=== PATIENT | female | born 1935 | race Caucasian/White ===

== ENCOUNTER 2018-06-27 15:03 | Inpatient (IN) | payer MEDICARE, MEDICAID ==
[~2018-06-27] VITALS: Ht 157.5 cm; Wt 50.3 kg
--- NOTE | 2018-06-27 15:25 | NUR ---
PT SENT BY CARDIO DR HERNANDEZ, FOR NEW A-FIB. TO ER BED 3, HOOKED TO MONITOR, CHANGED TO GOWN, PROVIDED W WARM BLANKET, DR OLIVER AT BEDSIDE FOR EVAL.
[2018-06-27] MEDS ORDERED: IV NS 0.9% 500 ML BAG IV ONE (15:30)
[2018-06-27] MEDS ORDERED: CARB1TAB21 PO (15:31)
[2018-06-27] MEDS ORDERED: FLUT1DIS3 PO (15:31)
[2018-06-27] MEDS ORDERED: VIT1CAPS44 PO (15:32)
[2018-06-27] MEDS ORDERED: ALBU18HF2 INH (15:32)
[2018-06-27] MEDS ORDERED: APIX2.5T PO (15:32)
[2018-06-27] MEDS ORDERED: ATOR10TA PO (15:32)
[2018-06-27] MEDS ORDERED: ASCO500T9 PO (15:32)
[2018-06-27] MEDS ORDERED: ALPR0.5T8 PO (15:32)
[2018-06-27] MEDS ORDERED: OMEP40CA37 PO (15:32)
[2018-06-27] MEDS ORDERED: DILT120T2 PO (15:32)
[2018-06-27] MEDS ORDERED: FURO20TA4 PO (15:40)
[2018-06-27] MEDS ORDERED: PYRI100T2 PO (15:40)
[2018-06-27] MEDS ORDERED: CYAN10009 PO (15:40)
[2018-06-27 15:41] LABS: BASOPHILS # (AUTO) 0.1 /CMM (0.0-0.2); BASOPHILS % (AUTO) 1.4 % (0.0-2.0); EOSINOPHILS % (AUTO) 5.5 % (0.0-6.0); HEMATOCRIT 38 % (33-45); HEMOGLOBIN 12.8 g/dL (11.5-14.8); LYMPHOCYTES # (AUTO) 1.5 /CMM (0.8-4.8); LYMPHOCYTES % (AUTO) 19.6 % (20.0-44.0); MEAN CORPUSCULAR HGB CONC 34 g/dl (31.0-36.0); MEAN CORPUSCULAR VOLUME 90 fL (82-100); MONOCYTES # (AUTO) 0.9 /CMM (0.1-1.30); MONOCYTES % (AUTO) 11.9 % (2.0-12.0); NEUTROPHILS # (AUTO) 4.7 /CMM (1.8-8.9); NEUTROPHILS % (AUTO) 61.6 % (43.0-81.0); PLATELET COUNT (AUTO) 374 /CMM (150-450); RED BLOOD CELL COUNT(AUTO) 4.23 MIL/uL (4.0-5.2); WHITE BLOOD COUNT (AUTO) 7.7 K/uL (4.3-11.0)
[2018-06-27 15:51] LABS: CALCIUM, SERUM 9.5 mg/dL (8.5-10.1); CARBON DIOXIDE 31 mmol/L (21-32); CHLORIDE 97 mmol/L (98-107); CREATININE 0.7 mg/dL (0.6-1.3); GLUCOSE 103 mg/dL (74-106); POTASSIUM 4.4 mmol/L (3.5-5.1); SODIUM SERUM 134 mmol/L (136-145); UREA NITROGEN, BLOOD 16 mg/dL (7-18)
[2018-06-27 16:04] LABS: ALANINE AMINOTRANSFERASE 15 U/L (12-78); ALKALINE PHOSPHATASE 119 U/L (46-116); ASPARTATE AMINOTRANSFERASE 17 U/L (15-37); BILIRUBIN,DIRECT 0.1 mg/dL (0.0-0.2); BILIRUBIN,TOTAL 0.4 mg/dL (0.2-1.0); TOTAL PROTEIN, SERUM 7.5 g/dL (6.4-8.2)
--- NOTE | 2018-06-27 16:20 | NUR ---
CALLED DR. NUGENT. WAS PAGED, AWAITING HIS CALL.
[2018-06-27] MEDS ORDERED: DILTIAZEM HCL 50 MG IV ONE (16:58)
[2018-06-27] MEDS ORDERED: DILTIAZEM HCL 50 MG IV IV ONE ×2 (17:00→20:00)
--- NOTE | 2018-06-27 17:16 | NUR ---
PT IN BED, COMFORTABLE, NAD NOTED, HOOKED TO FROZEN YOGURT MAKER, WILL CONTINUE T MONITOR.
--- NOTE | 2018-06-27 18:06 | NUR ---
PER DR OLIVER, DR HERNANDEZ WILL SEE THE PATIENT HERE IN ED.
--- NOTE | 2018-06-27 19:03 | NUR ---
DR HERNANDEZ AT BEDSIDE
[2018-06-27] MEDS ORDERED: DILTIAZEM HCL CD 240 MG PO SCH (19:30)
[2018-06-27] MEDS ORDERED: DILTIAZEM HCL 25 MG IV IV ONE (19:30)
--- NOTE | 2018-06-27 19:33 | NUR ---
CALLED [facility]. APPLICATION MANAGER WAS PAGED
--- NOTE | 2018-06-27 19:35 | NUR ---
URINE SAMPLE SENT TO LAB
--- NOTE | 2018-06-27 19:36 | NUR ---
REPORT GIVEN TO KESHIA SALAZAR FOR PRISCILLA
[2018-06-27 19:53] LABS: APPEARANCE,URINE Clear (CLEAR); BILIRUBIN,URINE Negative (NEGATIVE); BLOOD, URINE Negative Ery/uL (NEGATIVE); COLOR,URINE Yellow (YELLOW); KETONES,URINE Negative (NEGATIVE); LEUKOCYTE ESTERASE ,URINE Trace (NEGATIVE); NITRITE, URINE Positive (NEGATIVE); PROTEIN,URINE Negative (NEGATIVE); UGLUCOSE Negative (NEGATIVE); UROBILINOGEN,URINE 0.2 EU/dL (0.2)
--- NOTE | 2018-06-27 20:05 | NUR ---
CALLED [facility]SE [facility] FOR TELE BED
--- NOTE | 2018-06-27 20:20 | NUR ---
PT ASSIGNED 118-1.
[2018-06-27 20:31] LABS: RBC,URINE 0-2 /HPF (0-2)
[2018-06-27 20:32] LABS: BACTERIA,URINE Many /HPF (None Seen); SQUAMOUS EPITHELIAL CELL,UR Few /HPF (None Seen)
--- NOTE | 2018-06-27 20:34 | NUR ---
REPORT GIVEN TO KANU SALAZAR
[2018-06-27 21:00] VITALS: BP 174/93
[2018-06-27] MEDS ORDERED: MAGNESIUM HYDROXIDE 30 ML UDC PO PRN (21:00)
[2018-06-27] MEDS ORDERED: Z GUARD REMEDY 2 OZ OINT TP PRN (21:00)
[2018-06-27] MEDS ORDERED: MAG HYDROX/AL HYDROX/SIMETH 30 ML UDC PO PRN (21:00)
[2018-06-27] MEDS ORDERED: HYDROCODONE/APAP 5/325MG 1 EACH TABLET PO PRN (21:00)
[2018-06-27] MEDS: CARBIDOPA/LEVODOPA 10/100 MG 1 UDTAB PO SCH ×2 (21:00→21:33)
[2018-06-27] MEDS ORDERED: ONDANSETRON HCL/PF 4 MG/2 ML VIAL IVP PRN (21:00)
--- NOTE | 2018-06-27 21:00 | NUR ---
TELE N ADMITTING NOTES RECEIVED PATIENT FROM ER, ARRIVED VIA GURNEY. ADMITTED TO ROOM 110 W/ DX TACHYCARDIA UNDER CARE OF LYNN JOHNSON. PATIENT A/A/O X3, ABLE TO MAKE NEEDS KNOWN & FOLLOW SIMPLE COMMANDS. BREATHING EVEN & UNLABORED, TOLERATING ROOM AIR. ON TELE W/ AFIB, HR 130S. DENIES ANY CHEST PAIN OR DISCOMFORT. LEFT AC IV #20 INTACT & PATENT W/ DRESSING CDI, SALINE LOCKED. NO SIGNS OF INFILTRATION NOTED. ABLE TO AMBULATE W/ ASSIST & W/ CANE. SKIN ASSESSMENT DONE & ORIENTED TO ROOM. SAFETY MEASURES IN PLACE W/ SIDE RAILS UP & BED ALARM ON. INSTRUCTED TO USE CALL LIGHT FOR ASSISTANCE. AWAITING ADMITTING ORDERS. WILL CONTINUE TO MONITOR.
[2018-06-27] MEDS: ATORVASTATIN 10 MG TABLET PO SCH (21:33)
[2018-06-27] MEDS ORDERED: DILTIAZEM HCL CD 120 MG PO SCH (21:38)
[2018-06-27] MEDS: DILTIAZEM HCL CD 120 MG PO SCH (21:51)
[2018-06-27] MEDS ORDERED: LEVOFLOXACIN 500 MG /D5W 100ML 500 MG in PREMIX 1 EA IV ONE (22:00)
[2018-06-27] MEDS ORDERED: LEVOFLOXACIN 500 MG /D5W 100ML 100 ML IV ONE (22:52)
[2018-06-27] MEDS: ACETAMINOPHEN 325 MG TABLET PO PRN (23:16)
[2018-06-28] VITALS: BP 145/72
[2018-06-28] MEDS ORDERED: ALBUTEROL FS 2.5 MG/3 ML VIAL.NEB NEB PRN (01:30)
[2018-06-28] MEDS: ALPRAZOLAM 0.5 MG TABLET PO PRN ×2 (01:37→20:40)
[2018-06-28 04:00] VITALS: BP 134/70
[2018-06-28 06:28] LABS: BASOPHILS # (AUTO) 0.1 /CMM (0.0-0.2); BASOPHILS % (AUTO) 0.8 % (0.0-2.0); EOSINOPHILS % (AUTO) 4.8 % (0.0-6.0); HEMATOCRIT 34 % (33-45); HEMOGLOBIN 11.4 g/dL (11.5-14.8); LYMPHOCYTES # (AUTO) 1.2 /CMM (0.8-4.8); LYMPHOCYTES % (AUTO) 16.9 % (20.0-44.0); MEAN CORPUSCULAR HGB CONC 33 g/dl (31.0-36.0); MEAN CORPUSCULAR VOLUME 90 fL (82-100); MONOCYTES # (AUTO) 0.9 /CMM (0.1-1.30); MONOCYTES % (AUTO) 13.4 % (2.0-12.0); NEUTROPHILS # (AUTO) 4.4 /CMM (1.8-8.9); NEUTROPHILS % (AUTO) 64.1 % (43.0-81.0); PLATELET COUNT (AUTO) 335 /CMM (150-450); RED BLOOD CELL COUNT(AUTO) 3.81 MIL/uL (4.0-5.2); WHITE BLOOD COUNT (AUTO) 6.9 K/uL (4.3-11.0)
[2018-06-28 06:43] LABS: CALCIUM, SERUM 9.4 mg/dL (8.5-10.1); CARBON DIOXIDE 28 mmol/L (21-32); CHLORIDE 101 mmol/L (98-107); CREATININE 0.6 mg/dL (0.6-1.3); GLUCOSE 90 mg/dL (74-106); POTASSIUM 4.3 mmol/L (3.5-5.1); SODIUM SERUM 138 mmol/L (136-145); UREA NITROGEN, BLOOD 13 mg/dL (7-18)
[2018-06-28 06:46] LABS: MAGNESIUM 1.9 mg/dL (1.8-2.4); PHOSPHORUS 3.7 mg/dL (2.5-4.9)
[2018-06-28 06:56] LABS: CHOLESTEROL 120 mg/dL (<200); HDL CHOLESTEROL 81 mg/dL (40-60); LDL 38 mg/dL (0-99); THYROID STIMULATING HORMONE 0.013 uIU/mL (0.358-3.74); TRIGLYCERIDES 26 mg/dL (30-150)
--- NOTE | 2018-06-28 07:32 | NUR ---
DEPUTY MANAGER OPENING NOTES RECEIVED BEDSIDE REPORT.PATIENT SLEEPING ABLE TO AROUSE WITH VOICE AND TOUCH A/O X4 HARD OF HEARING USES HEARING AID. NO SIGNS OR SYMPTOMS OF RESPIRATORY DISTTESS OR ACUTE PAIN NOTED. SATURATING WELL ON ROOM AIR. NO CHEST PAIN NOTED SINUS TACHY 100'S ON MONITOR. AMBULATORY IN ROOM IV SALINE LOCK TO LAC #20 GAUGE. SAFETY PRECAUTIONS IN PLACE BED IN LOW POSITION CALL LIGHT WITHIN REACH LABS DRAWN WILL CONT TO MONITOR
[2018-06-28 08:00] VITALS: BP 123/75
[2018-06-28] MEDS: DILTIAZEM HCL CD 120 MG PO SCH ×2 (08:59→16:51)
[2018-06-28] MEDS: CARBIDOPA/LEVODOPA 10/100 MG 1 UDTAB PO SCH ×4 (08:59→20:23)
[2018-06-28] MEDS: MULTIVITAMIN/LUTEIN/MINERALS 1 TAB PO SCH (08:59)
[2018-06-28] MEDS: ASCORBIC ACID 500 MG TABLET PO SCH (09:00)
[2018-06-28] MEDS ORDERED: FLUTICASONE/SALMETEROL DISKUS IH SCH (09:00)
[2018-06-28] MEDS: PANTOPRAZOLE 40 MG TABLET.DR PO SCH (09:02)
[2018-06-28] MEDS: FLUTICASONE/VILANTEROL 1 EACH BLST.W.DEV IH SCH (10:57)
[2018-06-28] MEDS: APIXABAN 2.5 MG TABLET PO SCH ×2 (10:58→16:54)
--- NOTE | 2018-06-28 11:20 | NUR ---
PT. HAD X1 EPISODE OF EMESIS. VISUALIZED YELLOW IN COLOR. PT REPORTED EATING ORANGES. PT. STATES THAT SHE DOES NOT NORMALLY GET NAUSEOUS OR VOMIT. PER HONING MACHINE OPERATOR TOOL, HR WENT TO 118 AND THEN DOWN TO 90S, CONTROLLED AFIB. PT DENIES ANY CHEST PAIN, ANY RADIATING PAIN AND SHORTNESS OF BREATH. NO ACUTE DISTRESS NOTED. ZOFRAN GIVEN. SPO2 95% ON ROOM AIR, BP 139/75. WILL CONTINUE TO MONITOR.
--- NOTE | 2018-06-28 11:54 | NUR ---
CYBER SECURITY ARCHITECT NOTES SPOKE WITH PATIENT IN REGARDS TO CODE STATUS STATED SHE HAS ADVANCE DIRECTIVE STATING HER DNR/DNI STATUS
[2018-06-28 12:00] VITALS: BP 139/75
--- NOTE | 2018-06-28 12:20 | NUR ---
SKIN CARE INSTRUCTOR NOTES SPOKE WITH DR ROQUE IN REGARDS TO PATIENT HR SUSTAINING IN THE 130'S. ONE TIME PHONE ORDER DILTIAZEM 10 MG/IVP AND DILTIAZEM 120 MG PO X1
[2018-06-28] MEDS ORDERED: DILTIAZEM HCL CD 120 MG PO ONE (12:30)
[2018-06-28] MEDS ORDERED: DILTIAZEM HCL 25 MG IV IV ONE (12:30)
--- NOTE | 2018-06-28 12:43 | NUR ---
CANDY ROLLER NOTES HR 88 ON MONITOR AFTER 10MG DILTIAZEM
[2018-06-28] MEDS: ACETAMINOPHEN 325 MG TABLET PO PRN ×2 (12:53→20:40)
[2018-06-28 16:00] VITALS: BP 101/62
--- NOTE | 2018-06-28 18:38 | NUR ---
DIRECTOR OF LABORATORY OPERATIONS CLOSING NOTES PT. A/OX4 EATING DINNER WITH FAMILY AT BEDSIDE. HR 66 ON TELE, CONTROLLED AFIB. PT. DENIES CHEST PAIN, NAUSEA OR DISCOMFORT AT THIS TIME. NO SOB OR ACUTE DISTRESS NOTED. NO MORE EPISODES OF EMESIS. ALL ORDERED MEDS GIVEN. NONSKID SOCKS ON. BED LOCKED, LOW, SIDE RAILS UPX2, CALL LIGHT WITHIN REACH.
--- NOTE | 2018-06-28 19:40 | NUR ---
RN NOTE RECEIVED PT ON BED BREATHING EVEN AND UNLABORED ON ROOM AIR SATURATION 94%. AOX4 ABLE TO VERBALIZED NEEDS AND COMFORT. TELE MONITOR REVEALS A-FIB.AMBULATE WITH ASSIST AND USING CANE FOR HELP. IV SITE ON LAC FLUSHED WELL INTACT AND PATENT. CONTINUE TO CLOSELY MONITOR PATIENT DUE TO EPISODE OF A-FIB. KEPT PT CLEAN AND DRY , BED LOCKED AND SECURED IN LOWEST POSSIBLE POSITION. CALL LIGHT KEPT WITHIN EASY REACH REMINDED TO USED FOR ASSISTANCE.
[2018-06-28 20:00] VITALS: BP 122/62
[2018-06-28] MEDS ORDERED: LEVOFLOXACIN 250 MG /D5W 50 ML 250 MG in PREMIX 1 EA IV SCH (22:00)
[2018-06-28] MEDS: ATORVASTATIN 10 MG TABLET PO SCH (22:02)
[2018-06-29] VITALS: BP 120/63
[2018-06-29] MEDS: ACETAMINOPHEN 325 MG TABLET PO PRN ×3 (03:31→15:28)
[2018-06-29 04:00] VITALS: BP 118/60
[2018-06-29 06:34] LABS: BASOPHILS # (AUTO) 0.1 /CMM (0.0-0.2); BASOPHILS % (AUTO) 0.8 % (0.0-2.0); EOSINOPHILS % (AUTO) 6.1 % (0.0-6.0); HEMATOCRIT 36 % (33-45); HEMOGLOBIN 11.7 g/dL (11.5-14.8); LYMPHOCYTES # (AUTO) 1.3 /CMM (0.8-4.8); LYMPHOCYTES % (AUTO) 20.4 % (20.0-44.0); MEAN CORPUSCULAR HGB CONC 33 g/dl (31.0-36.0); MEAN CORPUSCULAR VOLUME 89 fL (82-100); MONOCYTES # (AUTO) 1.2 /CMM (0.1-1.30); MONOCYTES % (AUTO) 18.3 % (2.0-12.0); NEUTROPHILS # (AUTO) 3.5 /CMM (1.8-8.9); NEUTROPHILS % (AUTO) 54.4 % (43.0-81.0); PLATELET COUNT (AUTO) 325 /CMM (150-450); RED BLOOD CELL COUNT(AUTO) 4.01 MIL/uL (4.0-5.2); WHITE BLOOD COUNT (AUTO) 6.5 K/uL (4.3-11.0)
--- NOTE | 2018-06-29 06:40 | NUR ---
RN NOTES PATIENT ASLEEP WELL ON BED. NO ACUTE RESPIRATORY DISTRESS. AFEBRILE. CLOSELY MONITOR CARDIAC RHYTHM DUE TO EPISODE OF A-FIB YESTERDAY. PATIENT REMAINED SR THROUGHOUT THE SHIFT AT NIGHT UNTIL 4:02 AM PATIENT TURNS TO A- FLUTTER HR WENT DOWN TO 39 NOT SUSTAINING, ASYMPTOMATIC. PT. ASLEEP DEEPLY ON BED. NO SOB DENIES PAIN. AFTER COMPLAINING OF LEFT THIGH PAIN LAST NIGHT PRN MEDICINE GIVEN, TYLENOL REMAINED EFFECTIVE. . ALL NEEDS ATTENDED. KEPT PT CLEAN AND DRY. WILL ENDORSED CONTINUITY OF CARE TO AM NURSE.
[2018-06-29 06:50] LABS: CALCIUM, SERUM 9.5 mg/dL (8.5-10.1); CARBON DIOXIDE 29 mmol/L (21-32); CHLORIDE 99 mmol/L (98-107); CREATININE 0.7 mg/dL (0.6-1.3); GLUCOSE 99 mg/dL (74-106); MAGNESIUM 2.2 mg/dL (1.8-2.4); PHOSPHORUS 3.9 mg/dL (2.5-4.9); POTASSIUM 4.4 mmol/L (3.5-5.1); SODIUM SERUM 136 mmol/L (136-145); UREA NITROGEN, BLOOD 11 mg/dL (7-18)
[2018-06-29 08:00] VITALS: BP_SYST 134; BP_SYST 84; BP_DIAS 64; BP_DIAS 66
--- NOTE | 2018-06-29 08:00 | NUR ---
RN/TELE AM NOTES RECEIVED PATIENT CALM, ALOC X4, IV IN RIGHT AC 20 MATT FLUSHING WELL. PATIENT SKIN INTACT, LUNG SOUNDS CLEAR, NO EDEMA PRESENT, HEART RATE IS STILL A-FIB WITH CURRENT RATE OF 65BPM. PATIENT IS SATURATING WELL ON ROOM AIR, 95%. BOWL SOUNDS PRESENT IN ALL FOUR QUADRANTS, PULSES PRESENT AND STRONG IN ALL EXTREMITIES. WILL CONTINUE TO MONITOR. ALL TREATMENTS AND MEDICATIONS PROVIDED ORDERED.
[2018-06-29] MEDS: FLUTICASONE/VILANTEROL 1 EACH BLST.W.DEV IH SCH (08:06)
[2018-06-29] MEDS: MULTIVITAMIN/LUTEIN/MINERALS 1 TAB PO SCH (08:07)
[2018-06-29] MEDS: CARBIDOPA/LEVODOPA 10/100 MG 1 UDTAB PO SCH ×2 (08:07→12:45)
[2018-06-29] MEDS: ASCORBIC ACID 500 MG TABLET PO SCH (08:07)
[2018-06-29] MEDS: PANTOPRAZOLE 40 MG TABLET.DR PO SCH (08:08)
[2018-06-29] MEDS: APIXABAN 2.5 MG TABLET PO SCH (08:09)
[2018-06-29] MEDS: DILTIAZEM HCL CD 120 MG PO SCH (08:37)
[2018-06-29] MEDS ORDERED: CYANOCOBALAMIN 500 MCG TABLET PO SCH (09:00)
[2018-06-29 09:53] LABS: EOSINOPHILS % (MANUAL) 7 % (0-4); LYMPHOCYTES % (MANUAL) 25 % (16-48); MONOCYTES % (MANUAL) 17 % (0-11.0); NEUTROPHILS % (MANUAL) 51 (42-76)
[2018-06-29 12:00] VITALS: BP 136/70
[2018-06-29] MEDS ORDERED: DILT120C87 PO (13:21)
[2018-06-29] MEDS ORDERED: LEVO500T75 PO (13:21)
[2018-06-29 15:32] VITALS: BP 135/71
--- NOTE | 2018-06-29 15:49 | NUR ---
RN/TELE DISCHARGE NOTE PATIENT WAS DISCHARGED TO [facility], TAKEN BY KERA MCCLENDON. PATIENT VITAL SIGNS STABLE, NEW MEDICATION INSTRUCTIONS GIVEN AND UNDERSTOOD, EXIT CARE INSTRUCTIONS GIVEN AND UNDERSTOOD. PATIENT BELONGS CHECKED ALONG WITH DISCHARGE PAPERWORK SIGNED. DISCHARGE PACKET GIVEN TO PATIENT ALONG WITH PRESCRIPTION ORDER. PATIENT IV REMOVED, ID BAND REMOVED, ALL PAPERWORK COMPLETED AND PLACED IN CHART.
[2018-06-30] MEDS ORDERED: PYRIDOXINE HCL 50 MG TABLET PO SCH (09:00)
== END 2018-06-29 15:49 | DRG 308 ==
LOC: ER 15:11 → TELE1 20:33
PROVIDERS: ADMIT Nurse Practitioner Acute Care; ATTEND Hospitalist
DX: I48.92 Unspecified atrial flutter (principal); I50.33 Acute on chronic diastolic (congestive) heart failure; N39.0 Urinary tract infection, site not specified; E87.1 Hypo-osmolality and hyponatremia; I27.20 Pulmonary hypertension, unspecified; I25.2 Old myocardial infarction; I25.10 Atherosclerotic heart disease of native coronary artery without angina pectoris; I11.0 Hypertensive heart disease with heart failure; K59.09 Other constipation; E86.1 Hypovolemia; Z88.0 Allergy status to penicillin; J45.909 Unspecified asthma, uncomplicated; E78.5 Hyperlipidemia, unspecified; Z95.1 Presence of aortocoronary bypass graft; Z79.01 Long term (current) use of anticoagulants; Z88.2 Allergy status to sulfonamides; G20 Parkinson's disease; B96.20 Unspecified Escherichia coli [E. coli] as the cause of diseases classified elsewhere
CPT/HCPCS: 36415; 71045-TC; 80048-TC; 80061-TC; 80076-TC; 81000-TC; 83605-TC; 83735-TC; 84100-TC; 84443-TC; 84484-TC; 85025-TC; 85730-TC; 87040-TC; 87081-TC; 87086-TC; 87186-TC; A4216; G0378; J1956; J2405; J3490; J7040; J7050

== ENCOUNTER 2022-05-22 11:58 | Inpatient (IN) | payer MEDICARE, OTHER ==
[~2022-05-22] VITALS: Ht 154.9 cm; Wt 49.0 kg
[~2022-05-22 11:58] MED LIST: ALBU18HF2 INH; ALPR0.5T8 PO; APIX2.5T PO; ASCO-352 PO; ATOR10TA PO; CARB1TAB21 PO; CYAN-51 PO; DILT120C87 PO; FLUT1DIS3 PO; FURO20TA4 PO; LEVO500T23 PO; OMEP40CA21 PO; PYRI100T10 PO; VIT1CAPS44 PO
--- NOTE | 2022-05-22 12:00 | NUR ---
RECEICED PT 86YRS FEMALE FROM HOME [employer] by SON C/O SOB WITH EXERTION AWAKE AND ALERT RESPIRATION SPONT AND SOB
--- NOTE | 2022-05-22 12:10 | NUR ---
DANELLE Valverde BED SIDE [facility].RICKEY
--- NOTE | 2022-05-22 12:20 | NUR ---
INSERTED ANGO CATHETER G 22 ON RT FOR ARM
[2022-05-22] MEDS ORDERED: FUROSEMIDE 40 MG/4 ML VIAL IV ONE (12:30)
--- NOTE | 2022-05-22 12:35 | NUR ---
BLOOD DROW BY LAB TACH
[2022-05-22 12:44] LABS: BASOPHILS % (AUTO) 0.3 % (0.0-2.0); EOSINOPHILS % (AUTO) 1.2 % (0.0-6.0); HEMATOCRIT 30 % (33-45); HEMOGLOBIN 9.1 g/dL (11.5-14.8); LYMPHOCYTES # (AUTO) 2.1 K/uL (0.8-4.8); LYMPHOCYTES % (AUTO) 42.2 % (20.0-44.0); MEAN CORPUSCULAR HGB CONC 31 g/dl (31.0-36.0); MEAN CORPUSCULAR VOLUME 76 fL (82-100); MONOCYTES # (AUTO) 0.4 K/uL (0.1-1.30); MONOCYTES % (AUTO) 7.8 % (2.0-12.0); NEUTROPHILS # (AUTO) 2.4 K/uL (1.8-8.9); NEUTROPHILS % (AUTO) 48.5 % (43.0-81.0); PLATELET COUNT (AUTO) 340 K/uL (150-450); RED BLOOD CELL COUNT(AUTO) 3.92 MIL/uL (4.0-5.2); WHITE BLOOD COUNT (AUTO) 4.9 K/uL (4.3-11.0)
--- NOTE | 2022-05-22 12:50 | NUR ---
COVID SWAB SENT TO LAB
[2022-05-22] MEDS ORDERED: FUROSEMIDE 40 MG/4 ML VIAL ONE (12:54)
[2022-05-22 13:00] LABS: CALCIUM, SERUM 9.7 mg/dL (8.5-10.1); CARBON DIOXIDE 29 mmol/L (21-32); CHLORIDE 103 mmol/L (98-107); CREATININE 0.9 mg/dL (0.6-1.3); GLUCOSE 100 mg/dL (74-106); POTASSIUM 3.8 mmol/L (3.5-5.1); SODIUM SERUM 139 mmol/L (136-145); UREA NITROGEN, BLOOD 15 mg/dL (7-18)
--- NOTE | 2022-05-22 13:00 | NUR ---
LASIX 40 MG IVP GIVEN
[2022-05-22 13:13] LABS: ALANINE AMINOTRANSFERASE 11 U/L (12-78); ALBUMIN 3.8 g/dL (3.4-5.0); ALKALINE PHOSPHATASE 127 U/L (46-116); ASPARTATE AMINOTRANSFERASE 33 U/L (15-37); BILIRUBIN,DIRECT 0.2 mg/dL (0.0-0.2); BILIRUBIN,TOTAL 0.7 mg/dL (0.2-1.0); TOTAL PROTEIN, SERUM 7.3 g/dL (6.4-8.2)
[2022-05-22] MEDS ORDERED: DOCU-141 PO (13:31)
[2022-05-22] MEDS ORDERED: LORA10TA7 PO (13:31)
[2022-05-22] MEDS ORDERED: CHOL100040 PO (13:31)
--- NOTE | 2022-05-22 13:37 | NUR ---
SYBIL (DAUGHTER IN LAW) [phone] KERA (SON) [phone]
[2022-05-22] MEDS ORDERED: MELA3TAB41 PO (13:47)
[2022-05-22] MEDS ORDERED: PYRI100T10 PO (13:47)
[2022-05-22] MEDS ORDERED: CYAN-51 PO (13:47)
--- NOTE | 2022-05-22 14:05 | NUR ---
UA SENT TO LAB
--- NOTE | 2022-05-22 14:10 | NUR ---
PT VOIDING CLEAR YELLOW COLOR 600 ML
[2022-05-22] MEDS ORDERED: ENALAPRILAT DIHYD. (2.5MG/2ML) 1.25 MG/ML VIAL IV ONE (15:00)
[2022-05-22] MEDS ORDERED: NITROGLYCERIN 0.4 MG/TAB BOTTLE SL ONE (15:00)
--- NOTE | 2022-05-22 15:02 | NUR ---
PT VOIDING FREELY 400 ML YELLOW CLEAR COLOR
[2022-05-22] MEDS ORDERED: NITROGLYCERIN 0.4 MG/TAB BOTTLE ONE (15:36)
[2022-05-22] MEDS ORDERED: ENALAPRILAT INJ (1.25 MG/ML) 1.25 MG/ML VIAL IV ONE (15:36)
--- NOTE | 2022-05-22 15:58 | NUR ---
HAND OFF TO SHERIE Cabrera RN TO ROOM 111-2 VIA Highlighter STABLE VS NO SOB OR DISTRESS
[2022-05-22 16:00] VITALS: BP 166/105
[2022-05-22] MEDS ORDERED: ONDANSETRON HCL/PF 4 MG/2 ML VIAL IVP PRN (16:30)
[2022-05-22] MEDS ORDERED: ACETAMINOPHEN 325 MG TABLET PO PRN (16:30)
[2022-05-22] MEDS ORDERED: MORPHINE SULFATE INJ 2 MG/ML DISP.SYRIN IV PRN (16:30)
[2022-05-22] MEDS ORDERED: DOCUSATE SODIUM 100 MG CAPSULE PO PRN (16:30)
[2022-05-22] MEDS ORDERED: CLONIDINE HCL 0.1 MG TABLET PO PRN (16:30)
[2022-05-22] MEDS ORDERED: MAG HYDROX/AL HYDROX/SIMETH 30 ML UDC PO PRN (16:30)
[2022-05-22] MEDS ORDERED: LORATADINE 10 MG TABLET PO PRN (16:30)
[2022-05-22] MEDS ORDERED: Z GUARD REMEDY 4 OZ OINT TP PRN (16:30)
[2022-05-22] MEDS ORDERED: NITROGLYCERIN 0.4 MG/TAB BOTTLE SL PRN (16:30)
[2022-05-22] MEDS ORDERED: ALBUTEROL SULFATE 8 GM HFA.AER.AD IH PRN (16:30)
--- NOTE | 2022-05-22 16:30 | NUR ---
RN NEW ADMIT PATIENT ARRIVED AT 1630 FROM ER ON ROOM AIR SATURATING 97%. ALERT ORIENTED X4 FOLLOW COMMANDS. BP: 166/105 HR 98 TEMP 98.3 RR 18. PATIENT BROUGHT TO THE UNIT 111-2 BY STRETCHER. PATIENT HAS EDEMA +4 ON BLE. NO SKIN ISSUE. RFA #22 INTACT AND FLUSHING. PATIENT IS INCONTINENT USING BED COURTNEY. PATIENT RECEIVED LASIX 2 TIMES EACH TIME 40 MG VIA IV. PATIENT IS ABLE TO TAKE WHOLE PILLS BY MOUTH AND SHE IS ON CARDIAC DIET ABLE TO DRINK AND SWALLOW WITHOUT ANY COMPLICATION. PATIENT HAS HEARING AID AND USING GLASSES FOR READING ONLY. ALL SAFETY PRECAUTIONS IMPLEMENTED, BED AT LOWEST POSITION, CALL LIGHT WITHIN REACH WILL PRISCILLA THROUGHOUT THE SHIFT AND WILL ENDORSE THE PATIENT TO PM SHIFT FOR PRISCILLA.
[2022-05-22] MEDS ORDERED: ALBUTEROL FS 2.5 MG/3 ML VIAL.NEB NEB PRN (17:00)
[2022-05-22] MEDS ORDERED: FLUTICASONE/SALMETEROL 1 DISK IH SCH (17:00)
[2022-05-22] MEDS: CARBIDOPA/LEVODOPA 25/100 MG 1 UDTAB PO SCH ×2 (17:29→20:32)
[2022-05-22] MEDS: APIXABAN 2.5 MG TABLET PO SCH (17:30)
[2022-05-22] MEDS: NITROGLYCERIN PACKET 1 GM PACKET TD SCH ×2 (17:31→20:33)
[2022-05-22] MEDS: BUDESONIDE RESPULE INH 0.5 MG/2 ML AMPUL.NEB IH SCH (19:30)
[2022-05-22] MEDS: ALBUTEROL FS 2.5 MG/3 ML VIAL.NEB NEB SCH (19:30)
--- NOTE | 2022-05-22 19:30 | NUR ---
RN NOTES RECEIVED REPORT FROM MORNING RN. PATIENT IN BED A/O X4 ABLE TO MAKE NEEDS KNOWN. ON ROOM AIR SATING 98% NO SOB NO DISTRESS NOTED AT THIS TIME. WITH IV ACCESS AT RFA # 22 PATENT FLUSHES WELL, ON CHURCH HISTORY PROFESSOR WITH NSR ALL SAFETY MEASURES IN PLACE,. HOB ELEVATED CALL LIGHT WITHIN REACH WILL CLOSELY MONITOR THE PATIENT
[2022-05-22 20:00] VITALS: BP 137/75
[2022-05-22] MEDS: ALPRAZOLAM 0.5 MG TABLET PO PRN (20:44)
[2022-05-22] MEDS ORDERED: FUROSEMIDE 40 MG/4 ML VIAL IV SCH (21:00)
[2022-05-22] MEDS ORDERED: Medication Not On Formulary EA (Melatonin 3 MG) PO SCH (22:00)
[2022-05-23] VITALS: BP 130/79
[2022-05-23] MEDS: ALBUTEROL FS 2.5 MG/3 ML VIAL.NEB NEB SCH ×4 (01:30→19:24)
[2022-05-23 04:00] VITALS: BP 144/70
[2022-05-23] MEDS: NITROGLYCERIN PACKET 1 GM PACKET TD SCH ×3 (04:34→20:43)
[2022-05-23 06:55] LABS: CALCIUM, SERUM 8.5 mg/dL (8.5-10.1); CREATININE 0.9 mg/dL (0.6-1.3); MAGNESIUM 1.6 mg/dL (1.8-2.4); PHOSPHORUS 4.3 mg/dL (2.5-4.9); POTASSIUM 3.2 mmol/L (3.5-5.1)
--- NOTE | 2022-05-23 07:10 | NUR ---
RN OPENING NOTE- PATIENT IN BED A/O X4 ABLE TO MAKE NEEDS KNOWN. ON ROOM 98% NO SOB NO DISTRESS NOTED AT THIS TIME. WITH IV ACCESS AT RFA # 22 PATENT FLUSHES WELL, ON SANITARY LANDFILL OPERATOR WITH NSR ALL SAFETY MEASURES IN PLACE,. HOB ELEVATED CALL LIGHT WITHIN REACH WILL CLOSELY MONITOR / ASSIST
[2022-05-23 07:11] LABS: BASOPHILS % (AUTO) 0.5 % (0.0-2.0); EOSINOPHILS % (AUTO) 2.7 % (0.0-6.0); HEMATOCRIT 26 % (33-45); HEMOGLOBIN 8.1 g/dL (11.5-14.8); LYMPHOCYTES # (AUTO) 1.9 K/uL (0.8-4.8); LYMPHOCYTES % (AUTO) 36.4 % (20.0-44.0); MEAN CORPUSCULAR HGB CONC 31 g/dl (31.0-36.0); MEAN CORPUSCULAR VOLUME 75 fL (82-100); MONOCYTES # (AUTO) 0.8 K/uL (0.1-1.30); MONOCYTES % (AUTO) 14.7 % (2.0-12.0); NEUTROPHILS # (AUTO) 2.4 K/uL (1.8-8.9); NEUTROPHILS % (AUTO) 45.7 % (43.0-81.0); PLATELET COUNT (AUTO) 324 K/uL (150-450); RED BLOOD CELL COUNT(AUTO) 3.48 MIL/uL (4.0-5.2); WHITE BLOOD COUNT (AUTO) 5.2 K/uL (4.3-11.0)
[2022-05-23] MEDS: BUDESONIDE RESPULE INH 0.5 MG/2 ML AMPUL.NEB IH SCH ×2 (07:30→19:24)
[2022-05-23 08:00] VITALS: BP 136/66
[2022-05-23] MEDS ORDERED: POTASSIUM CL. PREMIX PERIPHER. 50 ML IV SCH (08:00)
[2022-05-23] MEDS ORDERED: POTASSIUM CHLORIDE 20 MEQ POWDER PACKET PO ONE ×2 (08:30→12:00)
[2022-05-23] MEDS: CARBIDOPA/LEVODOPA 25/100 MG 1 UDTAB PO SCH ×4 (08:37→20:42)
[2022-05-23] MEDS: ASCORBIC ACID 500 MG TABLET PO SCH (08:37)
[2022-05-23] MEDS: CHOLECALCIFEROL 1,000 UNIT TABLET (VIT D3) PO SCH (08:37)
[2022-05-23] MEDS: ATORVASTATIN 10 MG TABLET PO SCH (08:37)
[2022-05-23] MEDS: FUROSEMIDE 20 MG/2 ML VIAL IV SCH ×2 (08:37→16:36)
[2022-05-23] MEDS: APIXABAN 2.5 MG TABLET PO SCH ×2 (08:38→16:37)
[2022-05-23] MEDS ORDERED: POTASSIUM CHLORIDE 20 MEQ POWDER PACKET GT SCH (09:00)
[2022-05-23] MEDS ORDERED: Magnesium 1GM/D5W 100ML PREMIX 100 ML IV SCH (09:00)
[2022-05-23] MEDS ORDERED: CARBIDOPA/LEVODOPA 25/100 MG 1 UDTAB PO ONE (10:30)
[2022-05-23 12:00] VITALS: BP 138/67
[2022-05-23] MEDS ORDERED: MAGNESIUM OXIDE 400 MG TABLET PO SCH (15:00)
[2022-05-23 16:00] VITALS: BP 130/72
--- NOTE | 2022-05-23 18:29 | NUR ---
RN CLOSING NOTE- BETTER TODAY. FAMILY VISITED. PT IN BED, A/O X4 ABLE TO MAKE NEEDS KNOWN. ON ROOM 99% NO SOB NO DISTRESS NOTED AT THIS TIME. WITH IV ACCESS AT RFA # 22 PATENT FLUSHES WELL, ELECTROLYTES REPLACED, K AND MAG. PT CONSTIPATED. MILK OF MAGNESIA TO BE GIVEN AT HS TONIGHT. BS + AND HYPOACTIVE. ON MANAGER OF ENGINEERING WITH SR 88/M. ALL SAFETY MEASURES IN PLACE,. HOB ELEVATED, CALL LIGHT WITHIN REACH. MONITOR / ASSIST
--- NOTE | 2022-05-23 19:30 | NUR ---
TECHNICAL STAFF ASSISTANT OPENING NOTE PT AWAKE IN BED AT THIS TIME, A/O X4 ABLE TO MAKE NEEDS KNOWN. ON RA WITH NO SOB OR DISTRESS NOTED AT THIS TIME. IV ACCESS AT RFA # 22 PATENT FLUSHES WELL. PT C/O CONSTIPATION, WILL GIVE MILK OF MAGNESIA TONIGHT. ON [address] COURT REPORTER WITH SR 88/M. ALL SAFETY MEASURES IN PLACE: BED LOCKED AND IN LOWEST POSITION, HOB ELEVATED, CALL LIGHT WITHIN REACH. WILL CONTINUE TO MONITOR AND ASSIST.
[2022-05-23 20:00] VITALS: BP 115/64
[2022-05-23] MEDS: MAGNESIUM HYDROXIDE 30 ML UDC PO PRN (20:46)
[2022-05-23] MEDS: ALPRAZOLAM 0.5 MG TABLET PO PRN (21:15)
[2022-05-24] VITALS: BP 146/76
[2022-05-24] MEDS: ALBUTEROL FS 2.5 MG/3 ML VIAL.NEB NEB SCH ×4 (01:30→19:22)
--- NOTE | 2022-05-24 01:41 | NUR ---
NEB TX NOT GIVEN. PT REQUESTED TO NOT BE WAKEN UP FOR TX. RN AWARE.
[2022-05-24 04:00] VITALS: BP 144/84
[2022-05-24] MEDS: NITROGLYCERIN PACKET 1 GM PACKET TD SCH ×3 (05:00→20:25)
[2022-05-24 06:29] LABS: BASOPHILS % (AUTO) 0.3 % (0.0-2.0); EOSINOPHILS % (AUTO) 1.9 % (0.0-6.0); HEMATOCRIT 28 % (33-45); HEMOGLOBIN 8.6 g/dL (11.5-14.8); LYMPHOCYTES # (AUTO) 2.6 K/uL (0.8-4.8); LYMPHOCYTES % (AUTO) 44.3 % (20.0-44.0); MEAN CORPUSCULAR HGB CONC 31 g/dl (31.0-36.0); MEAN CORPUSCULAR VOLUME 75 fL (82-100); MONOCYTES # (AUTO) 0.6 K/uL (0.1-1.30); MONOCYTES % (AUTO) 9.8 % (2.0-12.0); NEUTROPHILS # (AUTO) 2.5 K/uL (1.8-8.9); NEUTROPHILS % (AUTO) 43.7 % (43.0-81.0); PLATELET COUNT (AUTO) 350 K/uL (150-450); RED BLOOD CELL COUNT(AUTO) 3.65 MIL/uL (4.0-5.2); WHITE BLOOD COUNT (AUTO) 5.8 K/uL (4.3-11.0)
--- NOTE | 2022-05-24 06:39 | NUR ---
DECORATING SUPERVISOR CLOSING NOTE PT SLEEPING IN BED AT THIS TIME, A/O X4 ABLE TO MAKE NEEDS KNOWN. STABLE ON RA WITH NO SOB OR DISTRESS NOTED AT THIS TIME. IV ACCESS AT RFA # 22 PATENT FLUSHES WELL. ON PARTNERSHIP MARKETING MANAGER SHOWING SR WITH 1ST DEG PAC, 69 HR. ALL CARE PROVIDED AND MEDS TOLERATED WELL. ALL SAFETY MEASURES MAINTAINED: BED LOCKED AND IN LOWEST POSITION, HOB ELEVATED, CALL LIGHT WITHIN REACH. WILL ENDORSE PRISCILLA TO DAY SHIFT NURSE.
[2022-05-24 06:59] LABS: CALCIUM, SERUM 9.1 mg/dL (8.5-10.1); CREATININE 0.8 mg/dL (0.6-1.3); MAGNESIUM 2.1 mg/dL (1.8-2.4); PHOSPHORUS 3.5 mg/dL (2.5-4.9); POTASSIUM 4.3 mmol/L (3.5-5.1)
--- NOTE | 2022-05-24 07:25 | NUR ---
LEHR TENDER NOTE PT SLEEPING IN BED AT THIS TIME, A/O X4 ABLE TO MAKE NEEDS KNOWN. STABLE ON RA WITH NO SOB OR DISTRESS NOTED AT THIS TIME. IV ACCESS AT RFA # 22 PATENT FLUSHES WELL. ON SANITARY INSPECTOR SHOWING SR 69 HR. ALL CARE PROVIDED AND MEDS TOLERATED WELL. ALL SAFETY MEASURES MAINTAINED: BED LOCKED AND IN LOWEST POSITION, HOB ELEVATED, CALL LIGHT WITHIN REACH. WILL MONITOR CLOSELY
[2022-05-24 08:00] VITALS: BP 149/69
[2022-05-24] MEDS: CHOLECALCIFEROL 1,000 UNIT TABLET (VIT D3) PO SCH (08:20)
[2022-05-24] MEDS: ATORVASTATIN 10 MG TABLET PO SCH (08:21)
[2022-05-24] MEDS: ASCORBIC ACID 500 MG TABLET PO SCH (08:21)
[2022-05-24] MEDS: APIXABAN 2.5 MG TABLET PO SCH ×2 (08:23→16:02)
[2022-05-24] MEDS: FUROSEMIDE 20 MG/2 ML VIAL IV SCH (08:23)
[2022-05-24] MEDS: CARBIDOPA/LEVODOPA 25/100 MG 1 UDTAB PO SCH ×4 (08:24→20:23)
[2022-05-24] MEDS: BUDESONIDE RESPULE INH 0.5 MG/2 ML AMPUL.NEB IH SCH ×2 (09:01→19:22)
--- NOTE | 2022-05-24 09:36 | NUR ---
telephone clerk note seen by dr tapia with order pt eval order carried out also assisted to bsc . able to made bm ,keep clean dry ,all needs attended
--- NOTE | 2022-05-24 11:07 | NUR ---
teletype clerk note turn reposition, keep clean dry place on [place]
--- NOTE | 2022-05-24 11:21 | NUR ---
telecommunications clerk note seen pt able to ambulate with walker with min assistance. a;so seen by rt, on breathing tx
[2022-05-24 12:00] VITALS: BP 145/77
--- NOTE | 2022-05-24 13:48 | NUR ---
rn telemetry note up on chair, not in distress watching tv ,call light within reach , will monitor
[2022-05-24 16:00] VITALS: BP 137/62
[2022-05-24] MEDS: FUROSEMIDE 20 MG TABLET PO SCH (16:02)
--- NOTE | 2022-05-24 16:38 | NUR ---
TAPER PRINTED CIRCUIT LAYOUT NOTE RESTING COMFORTABLY IN BED . CALL LIGHT WITHIN REACH , NOT IN DISTRESS, TOOK PO MEDS WELL
--- NOTE | 2022-05-24 18:13 | NUR ---
REGULATORY AFFAIRS ASSISTANT NOTE PATIENT IN BED , ALL NEEDS ATTENDED ,ALERT ORIENTED X4 , ON TELE MONITOR SR HR 80 ,WITH PURE WEEK IN PLACE KEEP CLEAN DRY , RT FA HL INTACT AND FLUSHED WELL , BED IN LOWEST AND LOCKED POSITION , CALL LIGHT WITHIN REACH , SAFETY MEASURE IMPLEMENTED ,ON RA, NO SOB NOTED AT THIS TIME, WILL CONT TO MONITOR CLOSELY, FAMILY AT BEDSIDE
--- NOTE | 2022-05-24 19:30 | NUR ---
GUARD IMMIGRATION OPENING NOTE RECEIVED PATIENT IN BED, AWAKE, ALERT AND ORIENTED X4. ABLE TO COMMUNICATE NEEDS WITH THE STAFFS. AFEBRILE AND NOT IN ANY FORM OF ACUTE DISTRESS. BREATHING EVEN AND NON LABORED. WITH IV ACCESS ON RIGHT FOREARM 22G-SL. ON TELE MONITORING WITH CURRENT READING OF SR. SAFETY MEASURES IN PLACE. KEPT BED IN LOCKED AND IN LOW POSITION. SIDE RAILS UP X2. ADVISED TO USE THE CALL LIGHT WHEN IN NEED OF ASSISTANCE.
[2022-05-24 20:00] VITALS: BP 147/87
[2022-05-24] MEDS: ALPRAZOLAM 0.5 MG TABLET PO PRN (20:47)
[2022-05-24] MEDS: MAGNESIUM HYDROXIDE 30 ML UDC PO PRN (20:47)
[2022-05-25] VITALS: BP 118/78
[2022-05-25] MEDS: ALBUTEROL FS 2.5 MG/3 ML VIAL.NEB NEB SCH ×2 (01:30→09:12)
--- NOTE | 2022-05-25 01:35 | NUR ---
PT REQUESTED TO NOT BE WOKEN UP FOR JEANNA TX.
[2022-05-25 04:00] VITALS: BP 153/68
[2022-05-25] MEDS: NITROGLYCERIN PACKET 1 GM PACKET TD SCH (04:41)
--- NOTE | 2022-05-25 06:30 | NUR ---
SLASHER RUNNER CLOSING NOTE PATIENT IN BED, ASLEEP BUT EASY TO AROUSE AND RESPONSIVE. ABLE TO COMMUNICATE NEEDS WITH THE STAFFS. AFEBRILE AND NOT IN ANY FORM OF ACUTE DISTRESS. BREATHING EVEN AND NON LABORED. WITH IV ACCESS ON RIGHT FOREARM 22G-SL. 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 MEDICATED ORDERED. SAFETY MEASURES IN PLACE. KEPT BED IN LOCKED AND IN LOW POSITION. SIDE RAILS UP X2. ADVISED TO USE THE CALL LIGHT WHEN IN NEED OF ASSISTANCE. ALL NURSING NEEDS ATTENDED. ENDORSED TO INCOMING SHIFT FOR CONTINUITY OF CARE.
--- NOTE | 2022-05-25 07:05 | NUR ---
RN OPENING NOTE PT ASLEEP IN BED, STABLE ON RA WITH NO SOB OR DISTRESS NOTED AT THIS TIME. IV ACCESS AT RFA # 22 PATENT FLUSHES WELL. ON MEDICAL SUPERVISOR SHOWING SR WITH 1st AV 69 HR. ALL CARE PROVIDED AND MEDS TOLERATED WELL. ALL SAFETY MEASURES MAINTAINED: BED LOCKED AND IN LOWEST POSITION, HOB ELEVATED, CALL LIGHT WITHIN REACH. WILL MONITOR CLOSELY
[2022-05-25 08:00] VITALS: BP 140/65
[2022-05-25 08:40] LABS: CALCIUM, SERUM 8.8 mg/dL (8.5-10.1); CREATININE 0.8 mg/dL (0.6-1.3); MAGNESIUM 2.4 mg/dL (1.8-2.4); PHOSPHORUS 3.8 mg/dL (2.5-4.9); POTASSIUM 3.8 mmol/L (3.5-5.1)
[2022-05-25] MEDS: CARBIDOPA/LEVODOPA 25/100 MG 1 UDTAB PO SCH (08:42)
[2022-05-25] MEDS: FUROSEMIDE 20 MG TABLET PO SCH (08:42)
[2022-05-25] MEDS: ATORVASTATIN 10 MG TABLET PO SCH (08:43)
[2022-05-25] MEDS: CHOLECALCIFEROL 1,000 UNIT TABLET (VIT D3) PO SCH (08:43)
[2022-05-25] MEDS: ASCORBIC ACID 500 MG TABLET PO SCH (08:43)
[2022-05-25] MEDS: APIXABAN 2.5 MG TABLET PO SCH (08:44)
[2022-05-25 09:03] LABS: HEMATOCRIT 28 % (33-45); HEMOGLOBIN 8.7 g/dL (11.5-14.8); MEAN CORPUSCULAR HGB CONC 31 g/dl (31.0-36.0); MEAN CORPUSCULAR VOLUME 75 fL (82-100); PLATELET COUNT (AUTO) 349 K/uL (150-450); RED BLOOD CELL COUNT(AUTO) 3.75 MIL/uL (4.0-5.2); WHITE BLOOD COUNT (AUTO) 5.6 K/uL (4.3-11.0)
[2022-05-25] MEDS ORDERED: CLON0.1T PO (09:12)
[2022-05-25] MEDS: BUDESONIDE RESPULE INH 0.5 MG/2 ML AMPUL.NEB IH SCH (09:12)
[2022-05-25] MEDS ORDERED: FURO20TA4 PO (09:12)
[2022-05-25 09:53] LABS: BAND % (MANUAL) 4 % (0.0-5.0); EOSINOPHILS % (MANUAL) 6 % (0-4); LYMPHOCYTES % (MANUAL) 22 % (16-48); METAMYELOCYTES % 1 % (0-0); MONOCYTES % (MANUAL) 3 % (0-11.0); MYELOCYTES % 1 % (0-0); NEUTROPHILS % (MANUAL) 63 (42-76)
[2022-05-26] MEDS ORDERED: FUROSEMIDE 20 MG TABLET PO SCH (09:00)
== END 2022-05-25 12:20 | disposition home health service (06) | DRG 291 ==
LOC: ER 12:07 → TELE1 15:33
PROVIDERS: ADMIT Internal Medicine; ATTEND Internal Medicine
DX: I11.0 Hypertensive heart disease with heart failure (principal); I50.33 Acute on chronic diastolic (congestive) heart failure; J96.01 Acute respiratory failure with hypoxia; I48.92 Unspecified atrial flutter; I16.0 Hypertensive urgency; I48.0 Paroxysmal atrial fibrillation; Z20.822 Contact with and (suspected) exposure to COVID-19; Z95.1 Presence of aortocoronary bypass graft; I25.10 Atherosclerotic heart disease of native coronary artery without angina pectoris; Z96.652 Presence of left artificial knee joint; Z88.0 Allergy status to penicillin; Z88.2 Allergy status to sulfonamides; Z79.01 Long term (current) use of anticoagulants; Z79.899 Other long term (current) drug therapy; Z79.51 Long term (current) use of inhaled steroids; I49.5 Sick sinus syndrome; D50.9 Iron deficiency anemia, unspecified; G20 Parkinson's disease; I27.20 Pulmonary hypertension, unspecified; E78.5 Hyperlipidemia, unspecified; Z96.649 Presence of unspecified artificial hip joint
CPT/HCPCS: 36415; 71045-TC; 80048-TC; 80076-TC; 83735-TC; 83880; 84100-TC; 84484-TC; 85025-TC; 85730-TC; 87081-TC; 94799-TC; 97116-TC; 97530-TC; C9803; G0378; J1940; J3475; J3480; J3490; J7050

== ENCOUNTER 2023-03-01 18:42 | Inpatient (IN) | payer MEDICARE, OTHER ==
[~2023-03-01] VITALS: Ht 162.6 cm; Wt 47.6 kg
[~2023-03-01 18:42] MED LIST changes: +CHOL100040 PO; +CLON0.1T PO; -DILT120C87 PO; +DOCU-141 PO; -LEVO500T23 PO; +LORA10TA7 PO; +MELA3TAB41 PO; -OMEP40CA21 PO
[2023-03-01 19:53] LABS: BASOPHILS % (AUTO) 0.4 % (0.0-2.0); EOSINOPHILS # (AUTO) 0.2 K/uL (0.0-0.7); EOSINOPHILS % (AUTO) 2.9 % (0.0-6.0); HEMATOCRIT 24 % (33-45); HEMOGLOBIN 7.4 g/dL (11.5-14.8); LYMPHOCYTES # (AUTO) 1.3 K/uL (0.8-4.8); LYMPHOCYTES % (AUTO) 20.2 % (20.0-44.0); MEAN CORPUSCULAR HEMOGLOBIN 23 PG (26.0-33.0); MEAN CORPUSCULAR HGB CONC 31 g/dl (31.0-36.0); MEAN CORPUSCULAR VOLUME 75 fL (82-100); MONOCYTES # (AUTO) 0.6 K/uL (0.1-1.30); MONOCYTES % (AUTO) 9.7 % (2.0-12.0); NEUTROPHILS # (AUTO) 4.4 K/uL (1.8-8.9); NEUTROPHILS % (AUTO) 66.8 % (43.0-81.0); PLATELET COUNT (AUTO) 398 K/uL (150-450); RED CELL DISTRIBUTION WIDTH 20.3 % (11.5-15.0); WHITE BLOOD COUNT (AUTO) 6.5 K/uL (4.3-11.0)
[2023-03-01 20:16] LABS: ALANINE AMINOTRANSFERASE 11 U/L (12-78); ALBUMIN 3.2 g/dL (3.4-5.0); ALKALINE PHOSPHATASE 155 U/L (46-116); ASPARTATE AMINOTRANSFERASE 25 U/L (15-37); BILIRUBIN,DIRECT 0.1 mg/dL (0.0-0.2); BILIRUBIN,TOTAL 0.4 mg/dL (0.2-1.0); CALCIUM, SERUM 9.1 mg/dL (8.5-10.1); CARBON DIOXIDE 24 mmol/L (21-32); CHLORIDE 102 mmol/L (98-107); CREATININE 0.7 mg/dL (0.6-1.3); GLUCOSE 112 mg/dL (74-106); NT-PRO BNP 4413 pg/mL (0-125); POTASSIUM 4.4 mmol/L (3.5-5.1); SODIUM SERUM 132 mmol/L (136-145); UREA NITROGEN, BLOOD 17 mg/dL (7-18)
[2023-03-01] MEDS ORDERED: NITROGLYCERIN PACKET 1 GM PACKET ONE (20:59)
[2023-03-01] MEDS ORDERED: FUROSEMIDE 40 MG/4 ML VIAL ONE (20:59)
[2023-03-01] MEDS ORDERED: NITROGLYCERIN PACKET 1 GM PACKET TD ONE (21:00)
[2023-03-01] MEDS ORDERED: FUROSEMIDE 40 MG/4 ML VIAL IV ONE (21:00)
[2023-03-01] MEDS: CARBIDOPA/LEVODOPA 25/100 MG 1 UDTAB PO SCH (22:30)
[2023-03-01] MEDS ORDERED: CLONIDINE HCL 0.1 MG TABLET PO PRN (22:30)
[2023-03-01] MEDS ORDERED: ACETAMINOPHEN 325 MG TABLET PO PRN (22:30)
[2023-03-01] MEDS ORDERED: ONDANSETRON HCL/PF 4 MG/2 ML VIAL IVP PRN (22:30)
[2023-03-01] MEDS ORDERED: DOCUSATE SODIUM 100 MG CAPSULE PO PRN (22:30)
[2023-03-02 02:30] VITALS: BP 158/87; TEMP 98.4; O2SAT 98
[2023-03-02] MEDS: ALPRAZOLAM 0.5 MG TABLET PO PRN ×2 (02:39→22:40)
[2023-03-02] MEDS ORDERED: ALBUTEROL FS 2.5 MG/3 ML VIAL.NEB NEB PRN (03:00)
[2023-03-02 07:33] LABS: BASOPHILS % (AUTO) 0.7 % (0.0-2.0); EOSINOPHILS # (AUTO) 0.1 K/uL (0.0-0.7); EOSINOPHILS % (AUTO) 2.1 % (0.0-6.0); HEMATOCRIT 24 % (33-45); HEMOGLOBIN 7.8 g/dL (11.5-14.8); LYMPHOCYTES # (AUTO) 2.8 K/uL (0.8-4.8); MEAN CORPUSCULAR HEMOGLOBIN 24 PG (26.0-33.0); MEAN CORPUSCULAR HGB CONC 32 g/dl (31.0-36.0); MEAN CORPUSCULAR VOLUME 75 fL (82-100); MONOCYTES # (AUTO) 0.6 K/uL (0.1-1.30); MONOCYTES % (AUTO) 9.5 % (2.0-12.0); NEUTROPHILS % (AUTO) 44.7 % (43.0-81.0); PLATELET COUNT (AUTO) 390 K/uL (150-450); RED BLOOD CELL COUNT(AUTO) 3.27 MIL/uL (4.0-5.2); RED CELL DISTRIBUTION WIDTH 20.2 % (11.5-15.0); WHITE BLOOD COUNT (AUTO) 6.6 K/uL (4.3-11.0)
[2023-03-02 07:43] LABS: CALCIUM, SERUM 9.1 mg/dL (8.5-10.1); CREATININE 0.7 mg/dL (0.6-1.3); MAGNESIUM 2.1 mg/dL (1.8-2.4); PHOSPHORUS 4.2 mg/dL (2.5-4.9); POTASSIUM 3.6 mmol/L (3.5-5.1)
[2023-03-02] MEDS ORDERED: SENN-261 PO (07:46)
[2023-03-02] MEDS ORDERED: OMEP40CA21 PO (07:46)
[2023-03-02] MEDS ORDERED: DOCU250C14 PO (07:46)
[2023-03-02] MEDS ORDERED: [UNRECOGNIZED DRUG - OTHER] PO (07:46)
[2023-03-02] MEDS ORDERED: CALC1TAB3 PO (07:46)
[2023-03-02 08:00] VITALS: BP 145/64; TEMP 98.1; O2SAT 96
[2023-03-02] MEDS: APIXABAN 2.5 MG TABLET PO SCH ×2 (08:11→16:24)
[2023-03-02] MEDS: CHOLECALCIFEROL 1,000 UNIT TABLET (VIT D3) PO SCH (08:12)
[2023-03-02] MEDS: PYRIDOXINE HCL 50 MG TABLET PO SCH (08:12)
[2023-03-02] MEDS: CYANOCOBALAMIN 500 MCG TABLET PO SCH (08:12)
[2023-03-02] MEDS: CARBIDOPA/LEVODOPA 25/100 MG 1 UDTAB PO SCH ×4 (08:13→20:25)
[2023-03-02] MEDS: ASCORBIC ACID 500 MG TABLET PO SCH (08:13)
[2023-03-02] MEDS: FLUTICASONE/VILANTEROL 1 EACH BLST.W.DEV IH SCH (08:22)
[2023-03-02 08:57] LABS: THYROID STIMULATING HORMONE 2.05 uIU/mL (0.358-3.74)
[2023-03-02 12:00] VITALS: BP 142/68; TEMP 98.2; O2SAT 94
[2023-03-02 16:08] VITALS: BP 136/67; TEMP 98.1; O2SAT 94
[2023-03-02 20:00] VITALS: BP 158/69; TEMP 98.6; O2SAT 97
[2023-03-02 20:13] VITALS: BP 158/69; TEMP 98.6; O2SAT 97
[2023-03-02] MEDS ORDERED: ATORVASTATIN 10 MG TABLET PO SCH (22:00)
[2023-03-03] VITALS: BP_SYST 145; BP_SYST 146; BP_DIAS 67; TEMP 98.2; O2SAT 96
[2023-03-03 04:00] VITALS: BP 147/74; TEMP 98.1; O2SAT 95
[2023-03-03 04:24] VITALS: BP 147/74; TEMP 98.1; O2SAT 95
[2023-03-03 07:00] VITALS: BP 135/72; TEMP 98.2; O2SAT 93
[2023-03-03 07:11] LABS: BASOPHILS # (AUTO) 0.1 K/uL (0.0-0.2); BASOPHILS % (AUTO) 1.2 % (0.0-2.0); EOSINOPHILS # (AUTO) 0.3 K/uL (0.0-0.7); EOSINOPHILS % (AUTO) 5.7 % (0.0-6.0); HEMATOCRIT 24 % (33-45); HEMOGLOBIN 7.6 g/dL (11.5-14.8); LYMPHOCYTES # (AUTO) 1.4 K/uL (0.8-4.8); LYMPHOCYTES % (AUTO) 26.6 % (20.0-44.0); MEAN CORPUSCULAR HEMOGLOBIN 23 PG (26.0-33.0); MEAN CORPUSCULAR HGB CONC 31 g/dl (31.0-36.0); MEAN CORPUSCULAR VOLUME 74 fL (82-100); MONOCYTES # (AUTO) 0.8 K/uL (0.1-1.30); MONOCYTES % (AUTO) 14.6 % (2.0-12.0); NEUTROPHILS # (AUTO) 2.7 K/uL (1.8-8.9); NEUTROPHILS % (AUTO) 51.9 % (43.0-81.0); PLATELET COUNT (AUTO) 403 K/uL (150-450); RED BLOOD CELL COUNT(AUTO) 3.27 MIL/uL (4.0-5.2); RED CELL DISTRIBUTION WIDTH 20.2 % (11.5-15.0); WHITE BLOOD COUNT (AUTO) 5.2 K/uL (4.3-11.0)
[2023-03-03 07:17] LABS: CALCIUM, SERUM 8.9 mg/dL (8.5-10.1); CREATININE 0.6 mg/dL (0.6-1.3); PHOSPHORUS 4.3 mg/dL (2.5-4.9); POTASSIUM 3.8 mmol/L (3.5-5.1)
[2023-03-03] MEDS: CYANOCOBALAMIN 500 MCG TABLET PO SCH (08:24)
[2023-03-03] MEDS: ASCORBIC ACID 500 MG TABLET PO SCH (08:24)
[2023-03-03] MEDS: CHOLECALCIFEROL 1,000 UNIT TABLET (VIT D3) PO SCH (08:24)
[2023-03-03] MEDS: CARBIDOPA/LEVODOPA 25/100 MG 1 UDTAB PO SCH (08:24)
[2023-03-03] MEDS: PYRIDOXINE HCL 50 MG TABLET PO SCH (08:25)
[2023-03-03] MEDS: APIXABAN 2.5 MG TABLET PO SCH (08:26)
[2023-03-03] MEDS: FLUTICASONE/VILANTEROL 1 EACH BLST.W.DEV IH SCH (08:27)
[2023-03-03] MEDS ORDERED: VALSARTAN 80 MG TABLET PO SCH (09:00)
[2023-03-03 09:29] VITALS: BP 135/72
[2023-03-03] MEDS ORDERED: FERR325T23 PO (09:47)
[2023-03-03] MEDS ORDERED: FURO-145 PO (09:47)
[2023-03-03] MEDS ORDERED: SOD FERRIC GLUC 125 MG in IV NS 0.9% 100 ML IV SCH (14:00)
== END 2023-03-03 13:20 | DRG 291 ==
LOC: ER 18:47 → TELE 03-02 01:30 → MED 03-03 12:24
PROVIDERS: ADMIT Nurse Practitioner Acute Care; ATTEND Nurse Practitioner Acute Care
DX: I11.0 Hypertensive heart disease with heart failure (principal); I50.33 Acute on chronic diastolic (congestive) heart failure; J96.01 Acute respiratory failure with hypoxia; D68.69 Other thrombophilia; E44.1 Mild protein-calorie malnutrition; Z68.1 Body mass index [BMI] 19.9 or less, adult; I16.0 Hypertensive urgency; D50.9 Iron deficiency anemia, unspecified; E78.5 Hyperlipidemia, unspecified; E88.09 Other disorders of plasma-protein metabolism, not elsewhere classified; G20.A1 Parkinson's disease without dyskinesia, without mention of fluctuations; I25.10 Atherosclerotic heart disease of native coronary artery without angina pectoris; I27.20 Pulmonary hypertension, unspecified; I48.0 Paroxysmal atrial fibrillation; Z88.2 Allergy status to sulfonamides; Z88.0 Allergy status to penicillin; Z95.1 Presence of aortocoronary bypass graft; Z79.01 Long term (current) use of anticoagulants; I08.0 Rheumatic disorders of both mitral and aortic valves; Z96.652 Presence of left artificial knee joint
CPT/HCPCS: 36415; 71045-TC; 80048-TC; 80061-TC; 80076-TC; 82728-TC; 83540-TC; 83735-TC; 83880; 84100-TC; 84439-TC; 84443-TC; 84484-TC; 85025-TC; 93307-TC; 97110-TC; 97116-TC; 97530-TC; G0378; J1940; J2916; J7030

== ENCOUNTER 2024-01-31 17:07 | Inpatient (IN) | payer MEDICARE, OTHER ==
[~2024-01-31] VITALS: Ht 162.6 cm; Wt 52.2 kg
[~2024-01-31 17:07] MED LIST changes: -ASCO-352 PO; +CALC1TAB3 PO; -CHOL100040 PO; -CLON0.1T PO; -DOCU-141 PO; +DOCU250C14 PO; +FERR325T23 PO; -FURO20TA4 PO; -MELA3TAB41 PO; +OMEP40CA21 PO; +SENN-261 PO; +[UNRECOGNIZED DRUG - OTHER] PO
[2024-01-31 17:38] LABS: BASOPHILS % (AUTO) 0.7 % (0.0-2.0); EOSINOPHILS # (AUTO) 0.1 K/uL (0.0-0.7); EOSINOPHILS % (AUTO) 2.1 % (0.0-6.0); HEMATOCRIT 40 % (33-45); HEMOGLOBIN 12.9 g/dL (11.5-14.8); LYMPHOCYTES # (AUTO) 1.8 K/uL (0.8-4.8); LYMPHOCYTES % (AUTO) 26.3 % (20.0-44.0); MEAN CORPUSCULAR HEMOGLOBIN 31 PG (26.0-33.0); MEAN CORPUSCULAR HGB CONC 33 g/dl (31.0-36.0); MEAN CORPUSCULAR VOLUME 95 fL (82-100); MONOCYTES # (AUTO) 0.8 K/uL (0.1-1.30); MONOCYTES % (AUTO) 11.9 % (2.0-12.0); PLATELET COUNT (AUTO) 274 K/uL (150-450); RED BLOOD CELL COUNT(AUTO) 4.15 MIL/uL (4.0-5.2); RED CELL DISTRIBUTION WIDTH 15.8 % (11.5-15.0); WHITE BLOOD COUNT (AUTO) 6.8 K/uL (4.3-11.0)
[2024-01-31 17:44] LABS: CALCIUM, SERUM 9.5 mg/dL (8.5-10.1); CARBON DIOXIDE 31 mmol/L (21-32); CHLORIDE 102 mmol/L (98-107); CREATININE 0.9 mg/dL (0.6-1.3); GLUCOSE 101 mg/dL (74-106); POTASSIUM 4.4 mmol/L (3.5-5.1); SODIUM SERUM 137 mmol/L (136-145); UREA NITROGEN, BLOOD 16 mg/dL (7-18)
[2024-01-31 17:57] LABS: NT-PRO BNP 555 pg/mL (0-125)
[2024-01-31] MEDS ORDERED: MAG HYDROX/AL HYDROX/SIMETH 30 ML UDC PO PRN (20:00)
[2024-01-31] MEDS ORDERED: Z GUARD REMEDY 4 OZ OINT TP PRN (20:00)
[2024-01-31] MEDS ORDERED: ONDANSETRON HCL/PF 4 MG/2 ML VIAL IVP PRN (20:00)
[2024-01-31] MEDS ORDERED: MAGNESIUM HYDROXIDE 30 ML UDC PO PRN (20:00)
[2024-01-31] MEDS ORDERED: ALBUTEROL FS 2.5 MG/3 ML VIAL.NEB IH PRN (21:00)
[2024-01-31] MEDS: CARBIDOPA/LEVODOPA 25/100 MG 1 UDTAB PO SCH (21:19)
[2024-01-31] MEDS: IV NS 0.9% 1,000 ML IV PRN (21:23)
[2024-02-01] VITALS (8 sets, daily range): BP systolic 124–174; BP diastolic 74–121; TEMP 97.7–98.2; O2SAT 94–100
[2024-02-01] MEDS: ACETAMINOPHEN 325 MG TABLET PO PRN (00:25)
[2024-02-01] MEDS: ALBUTEROL FS 2.5 MG/3 ML VIAL.NEB IH SCH (01:30)
[2024-02-01 07:14] LABS: CALCIUM, SERUM 9.4 mg/dL (8.5-10.1); CARBON DIOXIDE 29 mmol/L (21-32); CHLORIDE 106 mmol/L (98-107); CREATININE 0.6 mg/dL (0.6-1.3); GLUCOSE 97 mg/dL (74-106); MAGNESIUM 2.1 mg/dL (1.8-2.4); PHOSPHORUS 3.2 mg/dL (2.5-4.9); POTASSIUM 4.1 mmol/L (3.5-5.1); SODIUM SERUM 142 mmol/L (136-145); UREA NITROGEN, BLOOD 13 mg/dL (7-18)
[2024-02-01 07:18] LABS: BASOPHILS % (AUTO) 0.4 % (0.0-2.0); EOSINOPHILS # (AUTO) 0.1 K/uL (0.0-0.7); HEMATOCRIT 37 % (33-45); HEMOGLOBIN 12.3 g/dL (11.5-14.8); LYMPHOCYTES # (AUTO) 1.2 K/uL (0.8-4.8); LYMPHOCYTES % (AUTO) 19.9 % (20.0-44.0); MEAN CORPUSCULAR HEMOGLOBIN 31 PG (26.0-33.0); MEAN CORPUSCULAR HGB CONC 33 g/dl (31.0-36.0); MEAN CORPUSCULAR VOLUME 94 fL (82-100); MONOCYTES # (AUTO) 0.8 K/uL (0.1-1.30); MONOCYTES % (AUTO) 12.6 % (2.0-12.0); NEUTROPHILS % (AUTO) 66.1 % (43.0-81.0); PLATELET COUNT (AUTO) 263 K/uL (150-450); RED BLOOD CELL COUNT(AUTO) 3.99 MIL/uL (4.0-5.2); RED CELL DISTRIBUTION WIDTH 15.5 % (11.5-15.0); WHITE BLOOD COUNT (AUTO) 6.1 K/uL (4.3-11.0)
[2024-02-01] MEDS: BUDESONIDE RESPULE INH 0.5 MG/2 ML AMPUL.NEB IH SCH (07:54)
[2024-02-01] MEDS: PANTOPRAZOLE 40 MG TABLET.DR PO SCH (08:20)
[2024-02-01] MEDS: MULTIVITAMIN/LUTEIN/MINERALS 1 TAB PO SCH (08:21)
[2024-02-01] MEDS: ATORVASTATIN 10 MG TABLET PO SCH (08:21)
[2024-02-01] MEDS: CYANOCOBALAMIN 500 MCG TABLET PO SCH (08:21)
[2024-02-01] MEDS: PYRIDOXINE HCL 50 MG TABLET PO SCH (08:21)
[2024-02-01] MEDS: CALCIUM CARB 600MG /VIT D 1 EACH TABLET PO SCH (08:22)
[2024-02-01] MEDS: LORATADINE 10 MG TABLET PO SCH (08:22)
[2024-02-01] MEDS: DOCUSATE SODIUM 250 MG CAPSULE PO SCH (08:22)
[2024-02-01] MEDS: ALPRAZOLAM 0.5 MG TABLET PO SCH (08:25)
[2024-02-01] MEDS: LOSARTAN POTASSIUM 50 MG TABLET PO SCH (08:25)
[2024-02-01] MEDS: APIXABAN 2.5 MG TABLET PO SCH (08:25)
[2024-02-01] MEDS: SENNOSIDES 8.6 MG TABLET PO SCH (09:00)
[2024-02-01] MEDS ORDERED: POTA-10 PO (09:59)
[2024-02-01] MEDS ORDERED: CLON0.1T PO (09:59)
[2024-02-01] MEDS ORDERED: DOCU100C36 PO (09:59)
[2024-02-01] MEDS ORDERED: MELA3TAB41 PO (09:59)
[2024-02-01] MEDS ORDERED: FURO40TA5 PO (09:59)
[2024-02-01] MEDS: FUROSEMIDE 40 MG/4 ML VIAL IV SCH (10:36)
[2024-02-01] MEDS: POTASSIUM CHLORIDE 20 MEQ TAB.PRT.SR PO SCH (10:36)
[2024-02-01] MEDS: VALSARTAN 80 MG TABLET PO SCH (10:39)
[2024-02-01] MEDS: ALPRAZOLAM 0.25 MG TABLET PO ONE (15:17)
[2024-02-02] VITALS (7 sets, daily range): BP systolic 127; BP diastolic 71; TEMP 97.5; O2SAT 95–98
[2024-02-02 07:25] LABS: BASOPHILS % (AUTO) 0.4 % (0.0-2.0); EOSINOPHILS % (AUTO) 0.4 % (0.0-6.0); HEMATOCRIT 43 % (33-45); HEMOGLOBIN 14.3 g/dL (11.5-14.8); LYMPHOCYTES # (AUTO) 2.5 K/uL (0.8-4.8); LYMPHOCYTES % (AUTO) 27.1 % (20.0-44.0); MEAN CORPUSCULAR HEMOGLOBIN 32 PG (26.0-33.0); MEAN CORPUSCULAR HGB CONC 34 g/dl (31.0-36.0); MEAN CORPUSCULAR VOLUME 94 fL (82-100); MONOCYTES # (AUTO) 1.4 K/uL (0.1-1.30); MONOCYTES % (AUTO) 14.7 % (2.0-12.0); NEUTROPHILS # (AUTO) 5.3 K/uL (1.8-8.9); NEUTROPHILS % (AUTO) 57.4 % (43.0-81.0); PLATELET COUNT (AUTO) 293 K/uL (150-450); RED BLOOD CELL COUNT(AUTO) 4.53 MIL/uL (4.0-5.2); RED CELL DISTRIBUTION WIDTH 15.6 % (11.5-15.0); WHITE BLOOD COUNT (AUTO) 9.3 K/uL (4.3-11.0)
[2024-02-02 07:46] LABS: CALCIUM, SERUM 10.2 mg/dL (8.5-10.1); CARBON DIOXIDE 27 mmol/L (21-32); CHLORIDE 99 mmol/L (98-107); GLUCOSE 140 mg/dL (74-106); POTASSIUM 3.6 mmol/L (3.5-5.1); SODIUM SERUM 139 mmol/L (136-145); UREA NITROGEN, BLOOD 18 mg/dL (7-18)
[2024-02-02] MEDS: hydrALAZINE HCL 25 MG TABLET PO SCH (08:37)
[2024-02-02] MEDS: FERROUS SULFATE (325 MG) 325 MG/TAB TABLET PO SCH (08:37)
[2024-02-02] MEDS: METOPROLOL TARTRATE 50 MG TABLET PO SCH (09:51)
[2024-02-02] MEDS: FUROSEMIDE 40 MG/4 ML VIAL IV ONE (12:07)
[2024-02-02 12:16] LABS: CHOLESTEROL 213 mg/dL (<200); HDL CHOLESTEROL 111 mg/dL (40-60); LDL 80 mg/dL (0-99); TRIGLYCERIDES 82 mg/dL (30-150)
[2024-02-02 13:04] LABS: ABG BASE EXCESS 5.1 mmol/L (-2.0-3.0); ABG OXYGEN SATURATION 93.7 % (94.0-98.0); ABG PCO2 43.9 mmHg (32.0-45.0); ABG PO2 68.3 mmHg (83.0-108.0); ABG TOTAL HEMOGLOBIN 16.6 G/dL (12.0-16.0); COHb 1.4 % (0.5-1.5); MetHb 0.3 % (0.0-1.5); O2Hb 92.1 % (94.0-97.0); SITE, ABG RIGHT RADIAL
[2024-02-02] MEDS: ONDANSETRON HCL/PF 4 MG/2 ML VIAL IV PRN (13:08)
[2024-02-02 13:26] LABS: APPEARANCE,URINE SLIGHTLY CLOUDY (CLEAR); BILIRUBIN,URINE NEGATIVE (NEGATIVE); BLOOD, URINE 1+ Ery/uL (NEGATIVE); COLOR,URINE YELLOW (YELLOW); KETONES,URINE 1+ mg/dL (NEGATIVE); LEUKOCYTE ESTERASE ,URINE NEGATIVE (NEGATIVE); NITRITE, URINE NEGATIVE (NEGATIVE); PROTEIN,URINE 3+ mg/dl (NEGATIVE); UGLUCOSE TRACE mg/dL (NEGATIVE); UROBILINOGEN,URINE 0.2 EU/dL (0.2)
[2024-02-02 13:44] LABS: ADD URINE CULTURE YES; BACTERIA,URINE 2+ /HPF (None Seen); SQUAMOUS EPITHELIAL CELL,UR 0-2 /HPF (None Seen)
[2024-02-02 13:45] LABS: MUCUS,URINE Few /LPF (None Seen); URINE TOTAL PROTEIN 376.4 mg/dL (0-11.9)
[2024-02-02 13:47] LABS: LACTIC ACID 3.2 mmol/L (0.4-2.0)
[2024-02-02] MEDS: IV NS 0.9% 1,000 ML IV PRN (14:47)
[2024-02-02] MEDS: CEFTRIAXONE 1 G in IV D5W 50 ML IV SCH (15:08)
[2024-02-02 16:22] LABS: BILIRUBIN,DIRECT 0.1 mg/dL (0.0-0.2); BILIRUBIN,TOTAL 0.6 mg/dL (0.2-1.0)
[2024-02-02 16:37] LABS: LACTIC ACID REFLEX 2.5 mmol/L (0.4-1.9)
[2024-02-03] VITALS (12 sets, daily range): BP systolic 141–143; BP diastolic 58–65; TEMP 98.1–98.4; O2SAT 93–99
[2024-02-03 06:28] LABS: BASOPHILS % (AUTO) 0.2 % (0.0-2.0); EOSINOPHILS % (AUTO) 0.1 % (0.0-6.0); HEMATOCRIT 45 % (33-45); HEMOGLOBIN 14.6 g/dL (11.5-14.8); LYMPHOCYTES # (AUTO) 1.4 K/uL (0.8-4.8); LYMPHOCYTES % (AUTO) 8.7 % (20.0-44.0); MEAN CORPUSCULAR HEMOGLOBIN 31 PG (26.0-33.0); MEAN CORPUSCULAR HGB CONC 33 g/dl (31.0-36.0); MEAN CORPUSCULAR VOLUME 94 fL (82-100); MONOCYTES # (AUTO) 1.8 K/uL (0.1-1.30); MONOCYTES % (AUTO) 10.6 % (2.0-12.0); NEUTROPHILS # (AUTO) 13.3 K/uL (1.8-8.9); NEUTROPHILS % (AUTO) 80.4 % (43.0-81.0); PLATELET COUNT (AUTO) 256 K/uL (150-450); RED BLOOD CELL COUNT(AUTO) 4.78 MIL/uL (4.0-5.2); RED CELL DISTRIBUTION WIDTH 15.8 % (11.5-15.0); WHITE BLOOD COUNT (AUTO) 16.5 K/uL (4.3-11.0)
[2024-02-03 06:36] LABS: CALCIUM, SERUM 9.7 mg/dL (8.5-10.1); CARBON DIOXIDE 30 mmol/L (21-32); CHLORIDE 100 mmol/L (98-107); CREATININE 1.2 mg/dL (0.6-1.3); GLUCOSE 106 mg/dL (74-106); POTASSIUM 4.4 mmol/L (3.5-5.1); SODIUM SERUM 140 mmol/L (136-145); UREA NITROGEN, BLOOD 32 mg/dL (7-18)
[2024-02-03] MEDS ORDERED: IV NS 0.9% 250 ML IV ONE (11:00)
[2024-02-03] MEDS ORDERED: IOHEXOL-350 100 ML VIAL IV ONE (11:00)
[2024-02-03] MEDS: DOXYCYCLINE HYCLATE (100 MG) 100 MG TABLET PO SCH (14:35)
[2024-02-04] VITALS (14 sets, daily range): BP systolic 92–136; BP diastolic 54–78; TEMP 97.5–98.8; O2SAT 93–98
[2024-02-04 06:15] LABS: BASOPHILS # (AUTO) 0.1 K/uL (0.0-0.2); BASOPHILS % (AUTO) 0.4 % (0.0-2.0); EOSINOPHILS % (AUTO) 0.1 % (0.0-6.0); HEMATOCRIT 44 % (33-45); HEMOGLOBIN 14.2 g/dL (11.5-14.8); LYMPHOCYTES # (AUTO) 1.4 K/uL (0.8-4.8); LYMPHOCYTES % (AUTO) 9.4 % (20.0-44.0); MEAN CORPUSCULAR HEMOGLOBIN 31 PG (26.0-33.0); MEAN CORPUSCULAR HGB CONC 32 g/dl (31.0-36.0); MEAN CORPUSCULAR VOLUME 96 fL (82-100); MONOCYTES # (AUTO) 1.9 K/uL (0.1-1.30); MONOCYTES % (AUTO) 12.5 % (2.0-12.0); NEUTROPHILS # (AUTO) 11.6 K/uL (1.8-8.9); NEUTROPHILS % (AUTO) 77.6 % (43.0-81.0); PLATELET COUNT (AUTO) 255 K/uL (150-450); RED BLOOD CELL COUNT(AUTO) 4.63 MIL/uL (4.0-5.2); RED CELL DISTRIBUTION WIDTH 15.7 % (11.5-15.0)
[2024-02-04 06:40] LABS: CALCIUM, SERUM 9.4 mg/dL (8.5-10.1); CARBON DIOXIDE 29 mmol/L (21-32); CHLORIDE 100 mmol/L (98-107); CREATININE 1.3 mg/dL (0.6-1.3); GLUCOSE 100 mg/dL (74-106); MAGNESIUM 2.2 mg/dL (1.8-2.4); PHOSPHORUS 4.3 mg/dL (2.5-4.9); POTASSIUM 4.3 mmol/L (3.5-5.1); SODIUM SERUM 138 mmol/L (136-145); UREA NITROGEN, BLOOD 42 mg/dL (7-18)
[2024-02-04] MEDS: ALPRAZOLAM 0.25 MG TABLET PO ONE (21:02)
[2024-02-05] VITALS (11 sets, daily range): BP systolic 114–118; BP diastolic 48–52; TEMP 97.7–98.8; O2SAT 94–99
[2024-02-05 06:34] LABS: BASOPHILS % (AUTO) 0.2 % (0.0-2.0); EOSINOPHILS # (AUTO) 0.1 K/uL (0.0-0.7); EOSINOPHILS % (AUTO) 0.4 % (0.0-6.0); HEMATOCRIT 41 % (33-45); HEMOGLOBIN 13.3 g/dL (11.5-14.8); LYMPHOCYTES % (AUTO) 7.9 % (20.0-44.0); MEAN CORPUSCULAR HEMOGLOBIN 31 PG (26.0-33.0); MEAN CORPUSCULAR HGB CONC 33 g/dl (31.0-36.0); MEAN CORPUSCULAR VOLUME 94 fL (82-100); NEUTROPHILS # (AUTO) 10.2 K/uL (1.8-8.9); NEUTROPHILS % (AUTO) 76.5 % (43.0-81.0); PLATELET COUNT (AUTO) 246 K/uL (150-450); RED BLOOD CELL COUNT(AUTO) 4.35 MIL/uL (4.0-5.2); RED CELL DISTRIBUTION WIDTH 15.4 % (11.5-15.0); WHITE BLOOD COUNT (AUTO) 13.3 K/uL (4.3-11.0)
[2024-02-05 06:59] LABS: CALCIUM, SERUM 9.2 mg/dL (8.5-10.1); CARBON DIOXIDE 31 mmol/L (21-32); CHLORIDE 96 mmol/L (98-107); CREATININE 1.3 mg/dL (0.6-1.3); GLUCOSE 101 mg/dL (74-106); MAGNESIUM 2.2 mg/dL (1.8-2.4); POTASSIUM 3.6 mmol/L (3.5-5.1); SODIUM SERUM 134 mmol/L (136-145); UREA NITROGEN, BLOOD 54 mg/dL (7-18)
[2024-02-05] MEDS: IV LR 1000 ML 1,000 ML IV SCH (13:38)
[2024-02-05] MEDS: MEROPENEM 500 MG in IV NS 0.9% 50 ML IV SCH (14:17)
[2024-02-06] VITALS (15 sets, daily range): BP systolic 108–137; BP diastolic 48–68; TEMP 97.7–98.7; O2SAT 92–100
[2024-02-06 06:31] LABS: BASOPHILS % (AUTO) 0.1 % (0.0-2.0); EOSINOPHILS % (AUTO) 0.1 % (0.0-6.0); HEMATOCRIT 41 % (33-45); HEMOGLOBIN 13.5 g/dL (11.5-14.8); LYMPHOCYTES # (AUTO) 0.9 K/uL (0.8-4.8); LYMPHOCYTES % (AUTO) 6.3 % (20.0-44.0); MEAN CORPUSCULAR HEMOGLOBIN 31 PG (26.0-33.0); MEAN CORPUSCULAR HGB CONC 33 g/dl (31.0-36.0); MEAN CORPUSCULAR VOLUME 95 fL (82-100); MONOCYTES # (AUTO) 1.8 K/uL (0.1-1.30); MONOCYTES % (AUTO) 13.2 % (2.0-12.0); NEUTROPHILS # (AUTO) 10.9 K/uL (1.8-8.9); NEUTROPHILS % (AUTO) 80.3 % (43.0-81.0); PLATELET COUNT (AUTO) 241 K/uL (150-450); RED BLOOD CELL COUNT(AUTO) 4.36 MIL/uL (4.0-5.2); RED CELL DISTRIBUTION WIDTH 15.4 % (11.5-15.0); WHITE BLOOD COUNT (AUTO) 13.5 K/uL (4.3-11.0)
[2024-02-06 06:43] LABS: CALCIUM, SERUM 9.7 mg/dL (8.5-10.1); CARBON DIOXIDE 31 mmol/L (21-32); CHLORIDE 100 mmol/L (98-107); GLUCOSE 103 mg/dL (74-106); MAGNESIUM 2.2 mg/dL (1.8-2.4); PHOSPHORUS 2.6 mg/dL (2.5-4.9); POTASSIUM 4.8 mmol/L (3.5-5.1); SODIUM SERUM 139 mmol/L (136-145); UREA NITROGEN, BLOOD 55 mg/dL (7-18)
[2024-02-06 18:02] LABS: BILIRUBIN,DIRECT 0.1 mg/dL (0.0-0.2); BILIRUBIN,TOTAL 0.6 mg/dL (0.2-1.0)
[2024-02-06 18:06] LABS: LACTIC ACID REFLEX 1.9 mmol/L (0.4-1.9)
[2024-02-07] VITALS (12 sets, daily range): BP systolic 122–149; BP diastolic 58–92; TEMP 98.2–98.8; O2SAT 93–99
[2024-02-07] MEDS: MEROPENEM 1 G in IV NS 0.9% 100 ML IV SCH (09:01)
[2024-02-07 09:56] LABS: BASOPHILS % (AUTO) 0.2 % (0.0-2.0); EOSINOPHILS % (AUTO) 0.1 % (0.0-6.0); HEMATOCRIT 38 % (33-45); HEMOGLOBIN 12.6 g/dL (11.5-14.8); LYMPHOCYTES # (AUTO) 0.4 K/uL (0.8-4.8); LYMPHOCYTES % (AUTO) 3.5 % (20.0-44.0); MEAN CORPUSCULAR HEMOGLOBIN 31 PG (26.0-33.0); MEAN CORPUSCULAR HGB CONC 33 g/dl (31.0-36.0); MEAN CORPUSCULAR VOLUME 94 fL (82-100); MONOCYTES # (AUTO) 1.3 K/uL (0.1-1.30); MONOCYTES % (AUTO) 12.4 % (2.0-12.0); NEUTROPHILS # (AUTO) 8.7 K/uL (1.8-8.9); NEUTROPHILS % (AUTO) 83.8 % (43.0-81.0); PLATELET COUNT (AUTO) 249 K/uL (150-450); RED BLOOD CELL COUNT(AUTO) 4.05 MIL/uL (4.0-5.2); RED CELL DISTRIBUTION WIDTH 15.4 % (11.5-15.0); WHITE BLOOD COUNT (AUTO) 10.4 K/uL (4.3-11.0)
[2024-02-07 10:09] LABS: CALCIUM, SERUM 9.3 mg/dL (8.5-10.1); CARBON DIOXIDE 32 mmol/L (21-32); CHLORIDE 104 mmol/L (98-107); CREATININE 0.9 mg/dL (0.6-1.3); GLUCOSE 194 mg/dL (74-106); PHOSPHORUS 1.8 mg/dL (2.5-4.9); POTASSIUM 3.9 mmol/L (3.5-5.1); SODIUM SERUM 139 mmol/L (136-145); UREA NITROGEN, BLOOD 34 mg/dL (7-18)
[2024-02-07] MEDS ORDERED: K PHOS NEUTRAL 250 MG TABLET PO ONE (15:30)
[2024-02-07] MEDS: K PHOS NEUTRAL 250 MG TABLET PO ONE (16:59)
[2024-02-08] VITALS (8 sets, daily range): BP systolic 138; BP diastolic 84; O2SAT 97–100
[2024-02-08 07:18] LABS: CALCIUM, SERUM 9.3 mg/dL (8.5-10.1); CARBON DIOXIDE 25 mmol/L (21-32); CHLORIDE 105 mmol/L (98-107); CREATININE 0.8 mg/dL (0.6-1.3); GLUCOSE 111 mg/dL (74-106); MAGNESIUM 2.1 mg/dL (1.8-2.4); PHOSPHORUS 2.2 mg/dL (2.5-4.9); POTASSIUM 4.1 mmol/L (3.5-5.1); SODIUM SERUM 140 mmol/L (136-145); UREA NITROGEN, BLOOD 26 mg/dL (7-18)
[2024-02-08 08:38] LABS: BASOPHILS % (AUTO) 0.2 % (0.0-2.0); EOSINOPHILS # (AUTO) 0.1 K/uL (0.0-0.7); EOSINOPHILS % (AUTO) 0.7 % (0.0-6.0); HEMATOCRIT 39 % (33-45); HEMOGLOBIN 12.7 g/dL (11.5-14.8); LYMPHOCYTES # (AUTO) 0.6 K/uL (0.8-4.8); LYMPHOCYTES % (AUTO) 5.8 % (20.0-44.0); MEAN CORPUSCULAR HEMOGLOBIN 31 PG (26.0-33.0); MEAN CORPUSCULAR HGB CONC 33 g/dl (31.0-36.0); MEAN CORPUSCULAR VOLUME 95 fL (82-100); MONOCYTES # (AUTO) 1.9 K/uL (0.1-1.30); MONOCYTES % (AUTO) 17.2 % (2.0-12.0); NEUTROPHILS # (AUTO) 8.3 K/uL (1.8-8.9); NEUTROPHILS % (AUTO) 76.1 % (43.0-81.0); PLATELET COUNT (AUTO) 256 K/uL (150-450); RED BLOOD CELL COUNT(AUTO) 4.09 MIL/uL (4.0-5.2); RED CELL DISTRIBUTION WIDTH 15.7 % (11.5-15.0); WHITE BLOOD COUNT (AUTO) 10.9 K/uL (4.3-11.0)
[2024-02-08] MEDS: K PHOS NEUTRAL 250 MG TABLET PO ONE (16:25)
== END 2024-02-08 18:45 | DRG 871 ==
LOC: ER 17:09 → TELE 19:46 → MED 02-03 22:26
DX: A41.9 Sepsis, unspecified organism (principal); G93.41 Metabolic encephalopathy; J69.0 Pneumonitis due to inhalation of food and vomit; J18.0 Bronchopneumonia, unspecified organism; N39.0 Urinary tract infection, site not specified; Z16.24 Resistance to multiple antibiotics; Z16.19 Resistance to other specified beta lactam antibiotics; Z16.12 Extended spectrum beta lactamase (ESBL) resistance; D68.59 Other primary thrombophilia; I50.32 Chronic diastolic (congestive) heart failure; N17.9 Acute kidney failure, unspecified; E87.20 Acidosis, unspecified; I25.10 Atherosclerotic heart disease of native coronary artery without angina pectoris; G20.A1 Parkinson's disease without dyskinesia, without mention of fluctuations; I11.0 Hypertensive heart disease with heart failure; I48.0 Paroxysmal atrial fibrillation; Z88.0 Allergy status to penicillin; E78.5 Hyperlipidemia, unspecified; I27.20 Pulmonary hypertension, unspecified; Z88.2 Allergy status to sulfonamides; Z95.1 Presence of aortocoronary bypass graft; Z98.890 Other specified postprocedural states; I49.5 Sick sinus syndrome; I48.91 Unspecified atrial fibrillation; Z96.652 Presence of left artificial knee joint; Z96.649 Presence of unspecified artificial hip joint; Z79.01 Long term (current) use of anticoagulants; Z79.899 Other long term (current) drug therapy; T38.895A Adverse effect of other hormones and synthetic substitutes, initial encounter; Y92.9 Unspecified place or not applicable; Z82.49 Family history of ischemic heart disease and other diseases of the circulatory system; Z80.9 Family history of malignant neoplasm, unspecified; H54.61 Unqualified visual loss, right eye, normal vision left eye; H35.30 Unspecified macular degeneration; Z91.81 History of falling; B96.20 Unspecified Escherichia coli [E. coli] as the cause of diseases classified elsewhere; I08.0 Rheumatic disorders of both mitral and aortic valves
CPT/HCPCS: 36415; 36600; 71045-TC; 75574; 80048-TC; 80061-TC; 81001; 82247-TC; 82248-TC; 82570-TC; 82803-TC; 83605-TC; 83735-TC; 83880; 84100-TC; 84300-TC; 84443-TC; 84484-TC; 85025-TC; 85378-TC; 87086-TC; 93307-TC; 94760-TC; 94761-TC; 94799-TC; 97110-TC; 97116-TC; 97530-TC; A4223; G0378; J0696; J1940; J2185; J2405; J7030; J7050; J7060; J7120; Q9967

== ENCOUNTER 2024-02-28 11:09 | Emergency (ER) | payer MEDICARE, OTHER ==
[~2024-02-28] VITALS: Ht 167.6 cm; Wt 54.4 kg
[~2024-02-28 11:09] MED LIST changes: -CALC1TAB3 PO; +CLON0.1T PO; -CYAN-51 PO; +DOCU100C36 PO; -DOCU250C14 PO; +FURO40TA5 PO; +MELA3TAB41 PO; +POTA-10 PO; -PYRI100T10 PO; -SENN-261 PO; -VIT1CAPS44 PO; -[UNRECOGNIZED DRUG - OTHER] PO
[2024-02-28 11:38] LABS: BASOPHILS # (AUTO) 0.1 K/uL (0.0-0.2); BASOPHILS % (AUTO) 1.2 % (0.0-2.0); EOSINOPHILS # (AUTO) 0.2 K/uL (0.0-0.7); EOSINOPHILS % (AUTO) 3.2 % (0.0-6.0); HEMATOCRIT 36 % (33-45); HEMOGLOBIN 11.8 g/dL (11.5-14.8); LYMPHOCYTES # (AUTO) 1.1 K/uL (0.8-4.8); LYMPHOCYTES % (AUTO) 21.6 % (20.0-44.0); MEAN CORPUSCULAR HEMOGLOBIN 31 PG (26.0-33.0); MEAN CORPUSCULAR HGB CONC 33 g/dl (31.0-36.0); MEAN CORPUSCULAR VOLUME 95 fL (82-100); MONOCYTES # (AUTO) 0.7 K/uL (0.1-1.30); MONOCYTES % (AUTO) 15.2 % (2.0-12.0); NEUTROPHILS # (AUTO) 2.9 K/uL (1.8-8.9); NEUTROPHILS % (AUTO) 58.8 % (43.0-81.0); PLATELET COUNT (AUTO) 234 K/uL (150-450); RED BLOOD CELL COUNT(AUTO) 3.77 MIL/uL (4.0-5.2); RED CELL DISTRIBUTION WIDTH 15.6 % (11.5-15.0); WHITE BLOOD COUNT (AUTO) 4.9 K/uL (4.3-11.0)
[2024-02-28 11:53] LABS: CALCIUM, SERUM 9.1 mg/dL (8.5-10.1); CARBON DIOXIDE 31 mmol/L (21-32); CHLORIDE 105 mmol/L (98-107); CREATININE 0.8 mg/dL (0.6-1.3); GLUCOSE 92 mg/dL (74-106); POTASSIUM 4.1 mmol/L (3.5-5.1); SODIUM SERUM 140 mmol/L (136-145); UREA NITROGEN, BLOOD 15 mg/dL (7-18)
[2024-02-28 13:16] VITALS: BP 138/74; TEMP 98.5; O2SAT 98
== END 2024-02-28 13:17 | disposition home or self-care (01) ==
LOC: ER 11:13 → UNDOADMIN 12:39 → TELE 12:39 → ER 13:17
DX: R07.89 Other chest pain (principal); G20.A1 Parkinson's disease without dyskinesia, without mention of fluctuations; I10 Essential (primary) hypertension; Z98.890 Other specified postprocedural states; Z79.899 Other long term (current) drug therapy; Z88.0 Allergy status to penicillin
CPT/HCPCS: 36415; 71045-TC; 80048-TC; 84484-TC; 85025-TC